=== PATIENT | male | born 1950 | race Caucasian/White ===

== ENCOUNTER → 2020-09-22 | Outpatient (CLI) | payer MEDICARE ==
[~2020-09-22] MED LIST: ISOVUE-M 300 61% 15ML VIAL As Ordered ONE; LIDOCAINE 1% MDV 20ML VIAL As Ordered ONE; MULTTAB61 PO; SIMV20TA22 PO
[2020-09-22 10:30] VITALS: BP 144/82
--- NOTE | 2020-09-22 10:50 | REP ---
INDICATION: CERVICAL SPONDYLOLSIS. CT myelography. COMPARISON: Comparison is made with prior MRI study from 20 March 2020.. TECHNIQUE: Helical scanning is acquired and overlapping 2 mm high resolution axial images were generated and reviewed at bone and soft tissue window settings. Coronal and sagittal multiplanar re-formations images are generated. The intrathecal contrast injection was performed and dictated separately. FINDINGS: There is good opacification of the the visualized cervicothoracic thecal sac and the craniocervical junction. Cervical vertebral body heights are preserved and alignment is normal. No bony destructive lesion is seen. 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 At C2-3, there is minimal central disc bulging. No other finding. At C3-4, there is a mild central disc bulge indenting the ventral margin of the thecal sac but not compressing the cord. Neural foramina appear adequate. Minimal facet higher per trophy is seen bilaterally. At C4-C5, there is a broad-based right central and left posterior focal disc protrusion effacing the ventral subarachnoid space and flattening the ventral margin of the cord. This corresponds to the MR findings. There is no significant neural foraminal narrowing. The midline AP dimension of the thecal sac at this level is 7.9 mm. At C5-C6, there is degenerative disc narrowing and bilateral uncovertebral spurring is present producing neural foraminal encroachment. There is mild diffuse bulging of the posterior disc margin effacing the ventral subarachnoid space. At C6-C7, there is also bilateral uncovertebral spurring producing foraminal encroachment, left more so than right with large uncovertebral spurs noted. The C7-T1 level is unremarkable. IMPRESSION: Degenerative spondylosis changes. Broad-based focal disc protrusion C4-5 with thecal sac compression and flattening of the cord. Bilateral neural foraminal narrowing from uncovertebral spurring at C5-6 and C6-7. This is most pronounced on the left at C6-7.. <Electronically signed by Clyde Valdez > 09/22/20 1041
--- NOTE | 2020-09-22 17:06 | REP ---
INDICATION: CERVICAL SPONDYLOLSIS. COMPARISON: None. TECHNIQUE: The procedure was performed under the personal supervision of Dr. Valdez. The images were reviewed with Dr. Valdez. The risks and benefits of the procedure were explained to the patient and informed consent was obtained. The L3-4 interspace was localized using fluoroscopic guidance. The skin was prepped and draped in a sterile fashion. 2 mL of 1% lidocaine was used as a local anesthetic. Using fluoroscopic guidance a 22 gauge spinal needle was inserted and advanced into the thecal sac. 10 mL of Isovue-M 300 was injected. The needle was then removed. FINDINGS: There is disc space narrowing and osteophyte formation at L5-S1 and L4-5 in the lumbar spine was central disc bulging at L4-5. There is good opacification of the thecal sac and the cervical canal. AP and bilateral oblique spot radiographs document amputation/compression of the root sleeves on the left at C5-6 and to a lesser extent at C6-7. On the right, there is incomplete filling of the C6-7 root sleeve. Lateral radiographs demonstrate ventral extradural indentation of the thecal sac at the narrowed C5-6 disc and to a lesser extent at C4-5 and C3-4. The silhouette of the cervical and upper thoracic cord is normal. IMPRESSION: Fluoro guidance for cervical myelogram. Findings as described above. <Electronically signed by Micah Joseph > 09/22/20 1618 <Electronically signed by Clyde Valdez > 09/22/20 1706
== END ==
LOC: M IRPRO 07:40
DX: M43.02 Spondylolysis, cervical region (principal)
CPT/HCPCS: 62302; 72125; 72240; Q9967

== ENCOUNTER → 2021-04-11 | Outpatient (CLI) | payer MEDICARE ==
[~2021-04-11] MED LIST changes: -ISOVUE-M 300 61% 15ML VIAL As Ordered ONE; -LIDOCAINE 1% MDV 20ML VIAL As Ordered ONE
[2021-04-11 14:06] LABS: BLOOD UREA NITROGEN 13 MG/DL (7-18); CREATININE FOR GFR 1.17 MG/DL (0.70-1.30); GLOMERULAR FILTRATION RATE > 60.0 (>42)
== END ==
LOC: M LAB 12:23
PROVIDERS: ATTEND Otolaryngology
DX: Z01.812 Encounter for preprocedural laboratory examination (principal)

== ENCOUNTER → 2021-04-19 | Outpatient (CLI) | payer MEDICARE ==
[~2021-04-19] MED LIST changes: +PROHANCE 279.3MG/ML 15ML VIAL As Ordered ONE
== END ==
LOC: M RAD 14:49
PROVIDERS: ATTEND Otolaryngology
DX: R42 Dizziness and giddiness (principal); H75.81 Other specified disorders of right middle ear and mastoid in diseases classified elsewhere
CPT/HCPCS: 70553; A9576

== ENCOUNTER → 2023-10-03 | Outpatient (REF) | payer MEDICARE ==
[~2023-10-03] MED LIST changes: -PROHANCE 279.3MG/ML 15ML VIAL As Ordered ONE
== END ==
LOC: M SFHCDERM 07:52
PROVIDERS: ATTEND Physician Assistant
DX: L57.0 Actinic keratosis (principal)